=== PATIENT | female | born 1995 | race Caucasian/White ===

== ENCOUNTER 2017-04-24 23:20 | Observation (INO) | payer SELFPAY ==
[~2017-04-24] VITALS: Ht 162.6 cm; Wt 68.0 kg
[2017-04-27] MEDS ORDERED: IRON325 M1 PO (17:21)
[2017-04-27] MEDS ORDERED: DEXAMETHASONE4 MG PO (17:21)
--- NOTE | 2017-05-02 08:58 | CO ---
ADMIT: 04/25/2017 RM/LOC: 523 [facility] MR#: [id number] [address] [address] BRIDGER FERRARI [address] [place] [address] Consultation SEX: F AGE: 22 : 1995 DATE OF CONSULTATION: 04/26/2017 ATTENDING PHYSICIAN: Darlene Lang CONSULTING PHYSICIAN: Jeremy Machado MD REASON FOR CONSULTATION: Thrombocytopenia. HISTORY OF PRESENT ILLNESS: Bridger is a very pleasant, speaking, 22- year-old female, who states a 4 to 5 year history of increased nosebleeds, menorrhagia, headaches, weakness, and some exertional shortness of breath. She is originally from [facility] and had this worked up. At that time, she was told that she had issues with her spleen and low platelet counts. She took some oral medications for this to which she does not remember exactly which kind they were, but did not resolve the issue. She was told that she would benefit from a splenectomy, but did not have it done because "it took too long." She is now been admitted to the hospital for low platelet count and recent episode of epistaxis that was treated in the Emergency Department. She states some abdominal tenderness on the left side of her abdomen. She denies any fever, chills, night sweats, nausea, vomiting, or changes in her bowels. PAST MEDICAL HISTORY: No significant history. PAST SURGICAL HISTORY: Cyst or lipoma removal x2 on the lower aspect of her back. ALLERGIES: NO KNOWN DRUG ALLERGIES. MEDICATIONS: No current medications, but she just finished a round of steroids for her low platelets not too long ago. FAMILY HISTORY: Noncontributory. SOCIAL HISTORY: The patient denies any tobacco, alcohol, or illicit drug use. REVIEW OF SYSTEMS: CONSTITUTIONAL: The patient denies any fever, chills, or night sweats. The rest of a comprehensive 10-point review of systems was performed and all other systems are negative. PHYSICAL EXAMINATION: GENERAL: The patient is in no acute distress. She is alert and oriented. HEENT: Head is normocephalic and atraumatic. EOMs are intact. Conjunctivae free of icterus, erythema, or pallor. Pinnae free of deformities. Nose is midline. No tracheal deviation. NECK: Supple. SKIN: Negative for jaundice, clubbing, edema, pallor, or cyanosis. No petechia or purpura noted. LUNGS: Normal respiratory effort. ADMIT: 04/25/2017 RM/LOC: 523 [facility] MR#: [id number] [address] [address] [address] [address] Consultation SEX: F AGE: 22 : 1995 HEART: Distal pulses intact. Regular rate and rhythm. ABDOMEN: Soft, nondistended, tender on the left side extending into the left flank. NEURO: Grossly intact. LABORATORY DATA: Platelet count at 66,000. ASSESSMENT: Thrombocytopenia, concerns for immune thrombocytopenic purpura. PLAN: Surgical consult for possible laparoscopic splenectomy. Dr. Machado will give the final approval on this. In the meantime, I will see if we can proceed with surgery or do an outpatient followup. The patient is agreement of this plan. I had all her questions answered and would like to proceed. Thanks for the consultation of this patient. CAROLINA Hodge / Jeremy Machado MD / julieth JOB #: [id number] CC: Darlene Lang, Attending Physician Darlene Lang, Family Physician
--- NOTE | 2017-05-04 08:19 | HP ---
ADMIT: 04/25/2017 RM/LOC: 523 [facility] MR#: [id number] [address] [address] L[place]SETT LOFTONBRIDGER GILBERT [address] [place] [address] History and Physical SEX: F AGE: 22 : 1995 DATE OF SERVICE: CHIEF COMPLAINT: Nosebleed. HISTORY OF PRESENT ILLNESS: Bridger is a 22-year-old female, who presented to the Emergency Department overnight with acute nosebleed. She has a past medical history significant for ITP and recurrent nosebleeds associated with this. She had this extensively evaluated when she was in [facility]. Since being in the [facility], she denies having any routine hematology follow up. She has been seen numerous times in the past one year at the Emergency Department with nosebleeds. She does not have a primary care provider routinely. She denies any other medical problems. She says her nosebleeds have been recurrent, but she will go a period of one or two months without any problem. She says she knows "when her platelets were low" because she has easy bruising and her periods are heavier. She denies any other recent change in her health. She does not take any routine medications and has not had any change in that. No significant family history with bleeding disorders. She otherwise feels well today. In the overnight period, the emergency room physician was able to get her epistaxis resolved. He notified the on-call tanning salon attendant of her thrombocytopenia and was recommended that she be admitted for further evaluation and treatment of her ITP. Therefore, she was admitted as a [facility] patient. PAST MEDICAL HISTORY: 1. ITP. 2. Recurrent epistaxis. 3. Menorrhagia. MEDICATIONS: None. ALLERGIES: NO KNOWN MEDICAL ALLERGIES. FAMILY HISTORY: Significant for diabetes, but no hematologic diseases that are known. SOCIAL HISTORY: The patient is a nonsmoker and nondrinker. She lives with a friend. She is unemployed. REVIEW OF SYSTEMS: As per HPI. Only other remarkable finding was some epigastric pain that she describes as "gastritis." PHYSICAL EXAMINATION: VITAL SIGNS: Temperature 97.7, pulse 78, respiratory rate 14, blood pressure 122/61, and oxygen saturation 98% on room air. GENERAL: The patient is seated in a chair. No acute distress. She is cooperative with exam. Alert and oriented. HEENT: Within normal limits. HEART: Regular rate and rhythm. No murmurs. LUNGS: Clear to auscultation bilaterally. No crackles or wheezes. ABDOMEN: Soft and nondistended. She has mild tenderness in the epigastric ADMIT: 04/25/2017 RM/LOC: 523 [facility] MR#: [id number] [address] [address] BRIDGER FERRARI [address] [place] [address] History and Physical SEX: F AGE: 22 : 1995 and suprapubic region. Normal bowel sounds. EXTREMITIES: Warm and dry. No edema. SKIN: No rash, petechiae, or bruising noted. NEUROLOGIC: Cranial nerves II through XII grossly intact. No focal neurologic deficit. LABORATORY DATA: Please see electronic record for full details, but of note, her initial hemoglobin was 8.7 and initial platelet count of 22. IMAGING: Head CT was negative. ASSESSMENT AND PLAN: 1. Thrombocytopenia with history of ITP. Hematology has been consulted and will defer additional evaluation and treatment to them. 2. Recurrent epistaxis with no current bleed at this time. We will continue to monitor closely and will involve ENT should bleed recur. 3. Epigastric pain with history of gastritis. We will start her on a PPI. 4. Suprapubic tenderness. We will check urinalysis to rule out UTI. DISPOSITION: We will continue with inpatient evaluation and treatment until Hematology workup is complete and they feel she is stable for continued outpatient followup. Darlene Lang MD/ julieth JOB #: [id number] CC: Darlene Lang, Attending Physician Darlene Lang, Family Physician
--- NOTE | 2017-05-06 16:37 | CO ---
ADMIT: 04/25/2017 RM/LOC: 523 [facility] MR#: [id number] [address] [facility] [address] [place] [address] BRIDGER FERRARI [address] [place] [address] Consultation SEX: F AGE: 22 : 1995 DATE OF CONSULTATION: 04/25/2017 ATTENDING PHYSICIAN: Darlene Lang MD CONSULTING PHYSICIAN: Tamiko Albarran MD REASON FOR CONSULTATION: 1. Thrombocytopenia. 2. Anemia. HISTORY OF PRESENT ILLNESS: Ms. Vázquez is a woman from [facility], 22-year-old, was admitted in the hospital last night from the bruises and ecchymoses. On the blood workup, she was found to have a thrombocytopenia, and platelet count was 13, and her hemoglobin count was low as well. Therefore, the patient was admitted for further evaluation. She also had a nosebleed, which were very difficult to stop and in the ER, we are able to stop her bleeding. On further questioning, we used a room manager to take the history and the patient told me that she has history of ITP. In [facility], she was supposed to get a splenectomy, but she could not get it there, she did steroids for a longtime. Her status has responded, but the doctors in [facility] has recommended a splenectomy. She is a young and she does not have any insurance and has some financial issues. It looks like her drop in platelet count is from ITP recurrence, and she also has probably iron- deficiency anemia. She denies any nausea or vomiting. She denies any diarrhea. She denies any bleeding. She does have some petechiae and ecchymosis from her low platelet count. PAST MEDICAL HISTORY: History of ITP, recurrent epistaxis as well as menorrhagia. MEDICATIONS: She is taking medications none. ALLERGIES: NO KNOWN DRUG ALLERGIES. SOCIAL HISTORY: She is a nonsmoker and nondrinker. No IV drug use. FAMILY HISTORY: Significant for diabetes, but no other blood disorders. REVIEW OF SYSTEMS: GENERAL: Awake, alert, and oriented. CARDIOVASCULAR: No chest pain. RESPIRATORY: No shortness of breath. GENITOURINARY: No urgency. No frequency. ENDOCRINOLOGY: No polyuria. No polydipsia. GASTROINTESTINAL: No nausea. No vomiting. No diarrhea infection. No fever. NUTRITION: Adequate. NEUROLOGY: No focal neurological deficit. SKIN: Petechiae and ecchymoses. PHYSICAL EXAMINATION: VITAL SIGNS: Temperature 97.8, pulse 78, respiratory ADMIT: 04/25/2017 RM/LOC: 523 [facility] MR#: [id number] [address] [address] L[place]T [place], BRIDGER GILBERT [address] [place] [address] Consultation SEX: F AGE: 22 : 1995 rate 14, blood pressure 118/70. HEENT: Normocephalic and atraumatic. LUNGS: Clear. HEART: S1, S2 heard. Regular rate and rhythm. ABDOMEN: Soft, nontender, nondistended. Positive bowel sounds. EXTREMITIES: No edema, but there are some petechials and ecchymosis. NEUROLOGY: Awake, alert, and oriented x3. No focal neurological deficit. SKIN: No rashes, but there are some petechiae and ecchymoses as I just mentioned. LYMPHATICS: No abnormal lymph nodes palpated. LABORATORY DATA: WBC is 5.5, hemoglobin 9.1, hematocrit 30.7, MCV 70.1, and platelets 13. Normal kidney. Normal LFTs. IMPRESSION AND RECOMMENDATIONS: Ms. Mcgarry is a 22-year-old woman, who was admitted due to the low platelet count and nosebleed, found to have history of ITP. 1. Relapse recurrent immune thrombocytopenic purpura. The patient had taken steroids in her home country, [facility]. She was recommended a splenectomy, but she could not do it; therefore, came to the [place]. Currently, her platelet count is 13,000, relapsed; therefore, she needs to get steroids. Dexamethasone will be started, 40 mg p.o. daily x4 days. Her count should recover. Because of her no insurance and financial issues, and she may probably benefit from a splenectomy for long-term remission; therefore, I will ask 7th grade social studies teacher to get the financial situation help as well as our surgeon, Dr. Mclaughlin for possible laparoscopic splenectomy, we will get surgeon evaluation as well. 2. Microcytic anemia, likely iron deficiency. We will continue iron pill as well as Feraheme x1 dose today, and she will also continue iron pill upon discharge. I will check hepatitis panel as well as HIV panel just to make sure that there is no any infection. Upon discharge, she needs to follow up in our clinic regularly to check her platelet count and hemoglobin. If she does not respond to steroids, then other options will be splenectomy versus rituximab. She is young and probably splenectomy will be better for her. Thank you so much for your consultation, and I will follow the patient with you. Tamiko Albarran MD/ julieth JOB #: [id number] CC: Darlene Lang MD, Attending Physician Darlene Lang MD, Family Physician
--- NOTE | 2017-05-08 15:51 | ER ---
ADMIT: 04/24/2017 RM/LOC: ER [facility] MR#: [id number] [address] [address] BRIDGER FERRARI G[place]ERT [address] [place] [address] Emergency Room Report SEX: F AGE: 22 : 1995 DATE: 04/24/2017 A 22-year-old female comes to the Emergency Department with several hours worth of bleeding from her nares. In speaking with the patient, it sounds like she has had this happened to her numerous times before and she has bruises over her lower extremities. CBC was subsequently obtained, which revealed a platelet count of 22,000 and hemoglobin 8.7. See T-sheet for remainder of history and physical. The patient's epistaxis readily stopped. The patient is diagnosed with epistaxis, thrombocytopenia, and anemia, and instructed to follow up with Dr. Albarran tomorrow. Peter Knapp MD/ julieth JOB #: [id number] CC: Jeet Brady MD, Attending Physician
[2017-05-24] MEDS ORDERED: TYLENOL DPS325 MG PO (14:52)
[2017-05-24] MEDS ORDERED: TYLENOL #3 DPS1 TAB PO (14:52)
[2017-05-24] MEDS ORDERED: ULTRAM DPS50 MG PO (14:52)
[2017-05-24] MEDS ORDERED: ZOFRAN4 MG PO (14:53)
[2017-05-28] MEDS ORDERED: IRON325 M1 PO (13:49)
[2017-05-28] MEDS ORDERED: BACITRACIN15 G1 TP (13:49)
[2017-05-28] MEDS ORDERED: NORCO 5-325 TA1 EACH PO (13:50)
[2017-05-28] MEDS ORDERED: COLACE-DPS100 MG PO (13:50)
[2017-05-28] MEDS ORDERED: ULTRAM DPS50 MG PO (13:50)
[2017-05-28] MEDS ORDERED: TYLENOL DPS325 MG PO (13:51)
[2017-05-28] MEDS ORDERED: MOTRIN IB200 MG PO (13:51)
[2017-06-19] MEDS ORDERED: COMPAZINE10 MG PO (13:35)
[2017-06-19] MEDS ORDERED: AUGMENTIN 875-1 EACH PO (13:35)
[2017-06-19] MEDS ORDERED: DECADRON-DPS4 MG PO (13:35)
[2017-06-19] MEDS ORDERED: TYLENOL EXTRA500 M1 PO (13:36)
== END 2017-04-26 16:08 | disposition home or self-care (01) ==
LOC: ER 23:20 → 5MS 04-25 00:46
PROVIDERS: ADMIT Family Medicine
DX: D69.3 Immune thrombocytopenic purpura (principal); R04.0 Epistaxis; R10.819 Abdominal tenderness, unspecified site; N92.0 Excessive and frequent menstruation with regular cycle; D50.9 Iron deficiency anemia, unspecified; G44.209 Tension-type headache, unspecified, not intractable; R16.1 Splenomegaly, not elsewhere classified; Z79.899 Other long term (current) drug therapy

== ENCOUNTER 2017-04-27 23:02 | Emergency (ER) | payer SELFPAY ==
[~2017-04-27 23:02] MED LIST: DEXAMETHASONE4 MG PO; IRON325 M1 PO
--- NOTE | 2017-04-30 13:14 | ER ---
ADMIT: 04/27/2017 RM/LOC: ER [facility] MR#: [id number] 2620 [facility] [address] [place], [place] [address] BRIDGER FERRARI [address] [facility] [place] [address] Emergency Room Report SEX: F AGE: 22 : 1995 DATE: 04/27/2017 HISTORY OF PRESENT ILLNESS: The patient is a 22-year-old female with a history of ITP, has been followed up closely by Dr. Hollis, came to the ER with chief complaint of left flank and left lateral abdominal pain for 1 day. Pain is crampy and comes and goes. The patient denies similar pain in the past. The patient denies nausea or vomiting, but states she had cough and sore throat for 1 day. The patient denies any fever. The pain is mild-to- moderate in severity. The patient had normal bowel movement today. PHYSICAL EXAMINATION: VITAL SIGNS: The patient has stable vitals. GENERAL: In no obvious pain or distress. HEAD and NECK: Normal. CHEST: Clear. HEART: Normal heart sounds without any murmurs. ABDOMEN: Soft without any tenderness or rebound. There is no CVA tenderness. The rest of the physical exam is noncontributory. EMERGENCY ROOM COURSE: Concerning the patient has also history of gastritis, was given Maalox. Also, the patient was given Conetoe, which none of them resolved [id number] pain. Lab work was noncontributory. The patient had platelets of 65,000. The rest of the lab work was noncontributory and negative. CT of the abdomen and pelvis was negative for any acute changes. The patient was reassured, pain was controlled. The patient was re-examined and did not develop any new symptoms or signs. Abdominal exam was benign. The patient was discharged to home with return precautions, follow up with the primary doctor. DIAGNOSES: 1. Abdominal pain, resolved. 2. Upper respiratory infection. Yonny Wakefield MD/ julieth JOB #: [id number] CC: Yonny Wakefield MD, Attending Physician UNKNOWN, Family Physician
[2017-05-24] MEDS ORDERED: TYLENOL DPS325 MG PO (14:52)
[2017-05-24] MEDS ORDERED: TYLENOL #3 DPS1 TAB PO (14:52)
[2017-05-24] MEDS ORDERED: ULTRAM DPS50 MG PO (14:52)
[2017-05-24] MEDS ORDERED: ZOFRAN4 MG PO (14:53)
[2017-05-28] MEDS ORDERED: IRON325 M1 PO (13:49)
[2017-05-28] MEDS ORDERED: BACITRACIN15 G1 TP (13:49)
[2017-05-28] MEDS ORDERED: NORCO 5-325 TA1 EACH PO (13:50)
[2017-05-28] MEDS ORDERED: ULTRAM DPS50 MG PO (13:50)
[2017-05-28] MEDS ORDERED: COLACE-DPS100 MG PO (13:50)
[2017-05-28] MEDS ORDERED: TYLENOL DPS325 MG PO (13:51)
[2017-05-28] MEDS ORDERED: MOTRIN IB200 MG PO (13:51)
[2017-06-19] MEDS ORDERED: COMPAZINE10 MG PO (13:35)
[2017-06-19] MEDS ORDERED: DECADRON-DPS4 MG PO (13:35)
[2017-06-19] MEDS ORDERED: AUGMENTIN 875-1 EACH PO (13:35)
[2017-06-19] MEDS ORDERED: TYLENOL EXTRA500 M1 PO (13:36)
== END 2017-04-28 04:20 | disposition home or self-care (01) ==
LOC: ER 23:02
DX: R10.9 Unspecified abdominal pain (principal); J06.9 Acute upper respiratory infection, unspecified; Z79.899 Other long term (current) drug therapy

== ENCOUNTER 2017-05-04 22:25 | Emergency (ER) | payer SELFPAY ==
--- NOTE | 2017-05-05 06:57 | ER ---
ADMIT: 05/04/2017 RM/LOC: [facility] MR#: [id number] [address] [facility] [address] [place] [address] [address] [facility] [place] [place] [address] Emergency Room Report SEX: F AGE: 22 : 1995 DATE: 05/04/2017 TIME: 2225 hours. Please refer to my T-sheet for complete H and P. HISTORY OF PRESENT ILLNESS: Briefly, the patient has had 2-1/2 hours of nosebleed. She has a history of ITP. Her platelets were tested yesterday, they were 9. She is not currently on any steroids. She is planning on getting a splenectomy in the near future, started bleeding out of her left nose tonight. PHYSICAL EXAMINATION: VITAL SIGNS: Here are stable. HEENT: Mild bleeding in the left naris, but no active bleeding right now. Throat clear. She does have a couple hemorrhagic blisters in the back of her throat. EMERGENCY DEPARTMENT COURSE: CBC was normal except white count 11.2, hemoglobin 9.8, and platelets 6. I gave her Solu-Medrol 80 mg IM, Protonix 40 mg p.o. I talked to Dr. Burnette, he will see her at 9:00 in the clinic. If her nose will stop, he would like her to go ahead and head home, and he will treat her at 9:00, they are planning on doing IVIG. I did pack her left naris with Adrenalin. When I removed it, the bleeding was stopped. ASSESSMENT: 1. Acute anterior epistasis, left. 2. Immune thrombocytopenic purpura, platelets are 6. Given a dose of Solu- Medrol and will follow up with Dr. Burnette after I talk to him. PLAN: Dr. Burnette at 9:00. Return if it starts bleeding again. Jerardo L Ohlson, MD/ julieth JOB #: [id number] CC: Jerardo Hernandez MD, Attending Physician UNKNOWN, Family Physician
[2017-05-24] MEDS ORDERED: TYLENOL #3 DPS1 TAB PO (14:52)
[2017-05-24] MEDS ORDERED: ULTRAM DPS50 MG PO (14:52)
[2017-05-24] MEDS ORDERED: TYLENOL DPS325 MG PO (14:52)
[2017-05-24] MEDS ORDERED: ZOFRAN4 MG PO (14:53)
[2017-05-28] MEDS ORDERED: IRON325 M1 PO (13:49)
[2017-05-28] MEDS ORDERED: BACITRACIN15 G1 TP (13:49)
[2017-05-28] MEDS ORDERED: NORCO 5-325 TA1 EACH PO (13:50)
[2017-05-28] MEDS ORDERED: ULTRAM DPS50 MG PO (13:50)
[2017-05-28] MEDS ORDERED: COLACE-DPS100 MG PO (13:50)
[2017-05-28] MEDS ORDERED: MOTRIN IB200 MG PO (13:51)
[2017-05-28] MEDS ORDERED: TYLENOL DPS325 MG PO (13:51)
[2017-06-19] MEDS ORDERED: DECADRON-DPS4 MG PO (13:35)
[2017-06-19] MEDS ORDERED: COMPAZINE10 MG PO (13:35)
[2017-06-19] MEDS ORDERED: AUGMENTIN 875-1 EACH PO (13:35)
[2017-06-19] MEDS ORDERED: TYLENOL EXTRA500 M1 PO (13:36)
== END 2017-05-05 00:40 | disposition home or self-care (01) ==
LOC: ER 22:25
DX: R04.0 Epistaxis (principal); D69.3 Immune thrombocytopenic purpura